=== PATIENT | female | born 1965 | race Two or more races ===

== ENCOUNTER 2024-11-05 07:13 | Emergency (ER) | payer OTHER ==
[~2024-11-05] VITALS: Ht 172.7 cm; Wt 79.4 kg
[~2024-11-05 07:13] MED LIST: NABUMETONE500 MG PO; PERCOCET 5/3251 TAB PO
[2024-11-05] MEDS ORDERED: LOSARTAN POTASS50 MG (08:03)
[2024-11-05] MEDS ORDERED: ATORVASTATIN CA20 MG (08:03)
[2024-11-05] MEDS ORDERED: KETOROLAC TROMETHAMINE 60 MG VIAL IM STA (08:31)
[2024-11-05] MEDS ORDERED: ORPHENADRINE CITRATE 30 MG/ML AMPUL IM STA (08:32)
[2024-11-05] MEDS ORDERED: ORPHENADRINE CITRATE 30 MG/ML AMPUL ONE (08:43)
[2024-11-05] MEDS ORDERED: KETOROLAC TROMETHAMINE 60 MG VIAL IM ONE (08:43)
== END 2024-11-05 11:03 | disposition home or self-care (01) ==
LOC: ER 07:15
DX: M54.50 Low back pain, unspecified (principal)